=== PATIENT | female | born 2000 | race Caucasian/White ===

== ENCOUNTER 2022-08-13 08:07 | Emergency (ER) | payer BC, SELFPAY ==
[2022-08-13 08:16] VITALS: BP 155/88; PULSE 98; RESP 18; TEMP 36.3; O2SAT 98; BMI 45.8
--- NOTE | 2022-08-13 08:26 | ED_ITS ---
HPI - Headache General Chief Complaint: Headache/Migraine Stated Complaint: Headache, vomiting, diarrhea Time Seen by Provider: 08/13/22 08:13 History of Present Illness HPI Narrative: This 21-year-old female comes in reporting headache with vomiting and diarrhea. She states that she does get headaches on occasion and this 1 is worse in that it has lasted longer than usual. She does not have any neurologic deficits. She does not report any fevers. She does not have any cough or respiratory symptoms. There is no blood in the vomit or diarrhea. Related Data Home Medications Medication Instructions Recorded Confirmed bupropion HCl 150 mg 24 hr tablet, mg PO 08/13/22 extended release Previous Rx's Medication Instructions Recorded ketorolac 10 mg tablet 10 mg PO Q8H 5 days #15 tabs 08/13/22 ondansetron 4 mg disintegrating 4 mg PO Q6H #20 tabs 08/13/22 tablet Allergies Allergy/AdvReac Type Severity Reaction Status Date / Time erythromycin base Allergy Verified 08/13/22 08:19 Review of Systems Status of ROS: Reports: 10 or more systems reviewed and unremarkable except as noted in History and below Narrative: Constitutional: No fevers, no weight gain or loss. Eyes: No discharge. No vision changes. HENT: No congestion, no sore throat, no ear pain. Cardiovascular: No chest pain, no palpitations. Respiratory: No shortness of breath, no wheezes, no cough. Gastrointestinal: No abdominal pain. She has vomiting and diarrhea. Genitourinary: No dysuria, no hematuria. Musculoskeletal: Normal range of motion. Skin: No rashes, no pruritis. Neurological: No dizziness, weakness, sensory change, speech change. Endo/Heme/Allergies: No bruising or bleeding. No polydipsia. Pysch: no suicidality, no anxiety, no insomnia. All other systems reviewed and are negative. PFSH PFSH Social History Smoking Status: Unknown if ever smoked Do you use any of these nicotine containing products: None How often do you have a drink containing alcohol: monthly or less How often do you have six or more drinks on one occasion: Less than monthly AUDIT-C Alcohol total score: 2 Exam Narrative: Exam Narrative: Constitutional: Well-developed, well-nourished, no acute distress. HEENT: Normocephalic, atraumatic. Neck: Normal range of motion. Nontender. Supple. Heart: Regular. No murmurs. Normal rate. Intact distal pulses. Lungs: Clear to auscultation. No chest discomfort. No wheezes, rhonchi, or rales. Abdomen: Normal bowel sounds. Nontender. No rebound tenderness. Genitalia: Deferred. Back: No midline tenderness. Normal range of motion. Extremities: Normal range of motion. No injury. Skin: Intact. No rash. Warm. No erythema or pallor. Neurologic: No altered sensation. No weakness. Alert and oriented. Psychiatric: No suicidality. No anxiety or depression. No insomnia. Nursing notes and vitals signs are reviewed. Const: Vital Signs, click to edit/add: Vital Signs - 24 hr 08/13/22 08:16 Temperature 97.3 F L Pulse Rate [Right Pulse Oximeter] 98 Respiratory Rate 18 Blood Pressure [Ri ght Upper Arm] 155/88 H Pulse Oximetry 98 Oxygen Delivery Me thod Room Air Course Vital Signs Vital signs: Initial Vital Signs Temperature 97.3 F L 08/13/22 08:16 Temperature Source Temporal Artery Scan 08/13/22 08:16 Pulse Rate 98 08/13/22 08:16 Respiratory Rate 18 08/13/22 08:16 Blood Pressure 155/88 H 08/13/22 08:16 Blood Pressure Mean 110 08/13/22 08:16 Blood Pressure Position Sitting 08/13/22 08:16 Pulse Oximetry 98 08/13/22 08:16 Oxygen Delivery Method 08/13/22 08:16 Vital Signs Temperature 97.3 F L 08/13/22 08:16 Pulse Rate 98 08/13/22 08:16 Respiratory Rate 18 08/13/22 08:16 Blood Pressure 155/88 H 08/13/22 08:16 Pulse Oximetry 98 08/13/22 08:16 Oxygen Delivery Method 08/13/22 08:16 Temperature 97.3 F L 08/13/22 08:16 Pulse Rate 98 08/13/22 08:16 Respiratory Rate 18 08/13/22 08:16 Blood Pressure 155/88 H 08/13/22 08:16 Pulse Oximetry 98 08/13/22 08:16 Oxygen Delivery Method 08/13/22 08:16 MDM - Headache MDM Narrative Medical decision making narrative: This patient comes in with headache that is not atypical for her except that it has lasted longer than usual. Symptoms started about 3 days ago. She has had nausea, vomiting, and diarrhea. An IV was established where she received a L of normal saline along with Zofran 4 mg, Toradol 30 mg, and Benadryl 50 mg. This brought sufficient relief to her symptoms. She feels okay to return home. Testing for COVID and influenza is acquired and results are pending at the time of discharge. She received prescriptions for Toradol and Zofran. Discharge Plan Discharge Clinical Impression: Migraine Patient Disposition: Home, Self-Care Condition: Improved Additional Instructions: Take medication as needed and indicated. Follow up with MD or return if worsening. Prescriptions: New ketorolac 10 mg tablet 10 mg PO Q8H 5 Days Qty: 15 0RF ondansetron 4 mg tablet,disintegrating 4 mg PO Q6H Qty: 20 0RF No Action bupropion HCl 150 mg tablet extended release 24 hr PO Follow Up/Referrals: Verona Aviles MD [Primary Care Provider] - Stand Alone Forms: Drug Response Dx Info Instructions
--- OUTSIDE RECORDS SUMMARY | 2022-08-13 08:37 | XMS_ITS | Clinical Summary ---
:2000 Author Organization [facility] [place] [address] Care Team Providers Name Role Phone Verona Aviles MD Primary Care Provider [phone] Allergies Active Allergy Reactions Severity Noted Date Comments Erythromycin Other - Describe In Comment Field High 007 shock Medications Medication Sig Dispensed Refills Start Date End Date Status fluticasone (FLOVENT Inhale 2 Puffs by 10.6 g 2 10/15/2018 Active HFA) 44 mcg/Actuation mouth 2 times inhalerIndications: daily. Mild intermittent asthma without complication triamcinolone 0.1% Apply topically 1 Bottle 2 12/21/2020 Active TOPICAL (KENALOG) 0.1 % to affected lotionIndications: area(s) 3 times Contact dermatitis due daily. to chlorocompound group albuterol (PROVENTIL) Inhale 3 mL (2.5 75 mL 1 09/16/2021 Active 0.083 % neb mg) via a solutionIndications: nebulizer every 4 Mild intermittent hours if needed asthma without for Cough 1st complication choice, Shortness of Breath 1st choice or Wheezing 1st choice. norgestimate-ethinyl Take 1 Tablet by 84 Tablet 3 12/05/2021 Active estradioL (ORTHO mouth once daily. TRI-CYCLEN) 0.18/0.215/0.25 mg-35 mcg (28) tabletIndications: Encounter for contraceptive management, unspecified type albuterol HFA (PRO-AIR; INHALE 2 PUFFS BY 8.5 g 1 04/22/20 Active VENTOLIN; PROVENTIL) 90 MOUTH EVERY 4 mcg/actuation HOURS NEEDED inhalerIndications: FOR SHORTNESS OF Mild intermittent BREATH OR asthma without WHEEZING complication buPROPion (WELLBUTRIN Take 1 Tablet 90 Tablet 3 05/15/2022 Active XL) 150 mg (150 mg) by mouth Extended-Release every morning. tabletIndications: Anxiety Active Problems Problem Noted Date Pre-existing hypertension during in second t rimester 08/11/2021 Overview: Prior to bps elevated and thou ght possibly from anxiety. Were coming down with duloxetine per patient. Never on blood pressure medication. Stopped duloxetine and smoking when found out pregnan t. Started baby aspirin between 12-16wks of . Blood pressure at initial OB visit 125/77 but increased since. Will treat as chronic hypertension in . See office visit 08/08/21 04/22/2021 Overview: Formatting of this note is dif ferent from the original. 09/16/21 had COVID-19 infection. 33wk US EFW >97%. Repeat growth US in 4 weeks Estimated Date of Delivery: 11/01/21 Patient's last menstrual period was 12/25 (exact date). Last Tdap- 08/08/2021 Last Flu vaccine- 07/24/2021 Glucose (GTT) result- Component Latest Ref Rng & Units 07/24/2021 HEMOGLOBIN 12.0 - 16.0 g/dL 12.9 MCV 80 - 100 fL 89 GLUCOSE,GESTATIONAL 65 - 140 mg/dL 80 TREPONEMA PALLIDUM Negative Negative 20 week US: FINDINGS: Sonographic imaging demonstrates a singl e living intrauterine gestation. Fetus demonstrates a regular cardiac rate of 144 beats per minute. Fetus has a vertex position. The placenta lies anteriorly with out evidence of placenta previa. Amnioti c fluid volume appears normal. Single deepest vertical pocket: 5.8 cm. The composite ultrasound gestational age is calculated at 20 weeks 4 days with an estimated sonographic due date of 10/26/2021. Allergies Allergen Reactions ? ? Erythromycin Other - Describe In Comment Field shock OB History Para Term AB Living 1 0 0 0 0 0 SAB TAB Ectopic Multiple Live Births 0 0 0 0 0 # Outcome Date GA Lbr Yadiel/2nd Weight Sex Delivery Anes PTL Lv 1 Current Create lab flowsheet for OB labs- Component Latest Ref Rng & Units 03/01/2021 1 03/01/2021 2:02 PM 2:02 PM 2:02 PM ANTIBODY SCREEN Negative Negative SPECIMEN EXPIRATION DATE/TIME 03/04/21 23:59 HEMOGLOBIN 12.0 - 16.0 g/dL 14.7 MCV 80 - 100 fL 89 PLATELET COUNT 140 - 440 thou/cu mm 285 MPV 6.5 - 11.0 fL 10.8 RUBELLA IGG ANTIBODY Positive 6.72 CHLAMYDIA PROBE N GONORRHOEAE PROBE TREPONEMA PALLIDUM Negative Negative ABORH A Rh Positive HEPATITIS C ANTIBODY Non-Reactive Non-Reactive HIV-1/HIV-2 ANTIBODY Non-Reactive Non-Reactive HBSAG Nonreactive Nonreactive HCG BETA QUANT, mIU/mL 10,350 HEMOGLOBIN A1C SCREENING <=6.4 % 4.9 Component Latest Ref Rng & Units 04/18/2021 ANTIBODY SCREEN Negative SPECIMEN EXPIRATION DATE/TIME HEMOGLOBIN 12.0 - 16.0 g/dL MCV 80 - 100 fL PLATELET COUNT 140 - 440 thou/cu mm MPV 6.5 - 11.0 fL RUBELLA IGG ANTIBODY CHLAMYDIA PROBE Negative N GONORRHOEAE PROBE Negative TREPONEMA PALLIDUM Negative ABORH HEPATITIS C ANTIBODY Non-Reactive HIV-1/HIV-2 ANTIBODY Non-Reactive HBSAG Nonreactive HCG BETA QUANT, mIU/mL HEMOGLOBIN A1C SCREENING <=6.4 % Past Medical History: . Date ? ? Anxiety 12/25/2016 ? ? Dysfunction of eustachian tube 06/20/2008 ? ? 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 ? Obesity, unspecified 10/13/2008 ? ? Otitis media 06/20/2008 ? ? Unspecified otitis media recurrent Past Surgical History: . Laterality Date ? ? TONSIL AND ADENOIDECTOMY ? ? TYMPANOSTOMY x 4 sets No data on file. Problems (from 03/01/21 to pre sent) No problems associated with this episod robert Szymanski RN.....04/22/2021 8:30 AM Anxiety 12/25/2016 Mild intermittent asthma 06/16/2011 Oppositional defiant disorder of childhood or adolesce nce 01/17/2010 Obesity, unspecified 10/13/2008 Dysfunction of eustachian tube 06/20/2008 Otitis media 06/20/2008 Resolved Problems Problem Noted Date Resolved Date Unspecified asthma(493.90) 06/16/2011 Encounters Date Type Specialty Care Team Description 05/15/2022 Office Visit [facility]ell[facility] Pain (Side pain - bilateral - MD Jenni feels like a s kiera cramp especially when walking - LEFT side does radiate into back some x2-3 weeks /) 05/15/2022 Travel from Last 3 Months Immunizations Name Administration Dates Next Due COVID-19 vaccine (Moderna 01/23/2021, 11/21/2020 100mcg/0.5mL) PF, MDV DTaP 06/20/2004, 04/09/2000, 08/21/1999, 06/13/1999, 02/25/1999 HIB HbOC (HibTITER) 04/09/2000, 08/21/1999, 06/13/1999, 02/25/1999 HPV 9 (Gardasil 9) 07/04/2016 Hepatitis A (Peds) 01/13/2017, 07/04/2016 Hepatitis B (Peds) 04/13/2018, 11/19/2017, 10/12/2017, 08/21/1999, 06/13/1999, 02/25/1999 Human Papilloma Virus Vaccine 08/13/2011, 06/16/2011 Inactivated Polio Vaccine 06/20/2004, 12/30/1999, 06/13/1999 , 02/25/1999 Influenza A (H1N1), Inactivated 10/24/2009 Influenza, IIV3 (Age >=3 years) 09/10/2008, 12/11/2006 Influenza, IIV4 07/24/2021, 09/07/2020, 07/04/2016 MMR 06/20/2004, 12/30/1999 Meningococcal Vaccine (Menveo) 07/04/2016 Tdap 08/08/2021, 06/16/2011 Varicella Vaccine 06/16/2011, 12/30/1999 Family History Medical History Relation Name Comments Anesthesia Problem Father increased hea rt rate and blood pressure Diabetes Paternal Grandfather Asthma No Family History Blood Disease No Family History Heart Disease No Family History Hyperlipidemia No Family History Relation Name Status Comments Father Paternal Grandfather Social History Tobacco Use Types Packs/Day Years Used Date Never Smoker Smokeless Tobacco: Never Used Tobacco Cessation: Counseling Given: Yes Alcohol Use Standard Drinks/Week Comments No 0 (1 standard drink = 0.6 oz pure alcoho l) Sex Assigned at Date Recorded Not on file Obstetrics History Para Term AB IAB SAB Ectopic Multiple Living Live Births 1 1 1 0 0 0 0 0 0 1 1 Date Outcome GA Total Labor/2nd/3rd Weight Sex Delivery Anes PTL Giana A 1 A5 Name Clin Labor 10/26 Term 39w M CS-Classi Suzanne /2021 1d daniel ng Last Filed Vital Signs Vital Sign Reading Time Taken Comments Blood Pressure 133/94 05/15/2022 2:58 PM CDT Pulse 80 05/15/2022 2:55 PM CDT Temperature 36.7 ??C (98 ??F) 10/15/2018 11:15 AM MAP DRAFTER Respiratory Rate 16 10/15/2018 11:15 AM MAP DRAFTER Oxygen Saturation 99% 05/15/2022 2:55 PM CDT Inhaled Oxygen Concentration - - Weight 135.4 kg (298 lb 6.4 oz) 05/15/2022 2:55 PM CDT Height 167 cm (5' 5.75) 03/01/2021 1:25 PM CDT Body Mass Index 48.53 03/01/2021 1:25 PM CDT Plan of Treatment Health Maintenance Due Date Last Done Comments Pneumococcal series for age 19-64 2004 (1 - PCV) COVID-19 vaccine series (3 - 03/20/2021 01/23/2021, 021 Booster for Moderna series) BMI (ht and wt on same day) for 03/01/2022 03/01/2021, /06/2021, age 18+ 12/21/2020, Additional history exists Chlamydia for age 16-24 04/18/2022 04/18/2021, 09/07/2020, 06/01/2018, Additional history exists Influenza for age 9-49 06/26/2022 07/24/2021, 09/07/2020, 07/04/2016, Additional history exists Depression screening for age 12+ 12/05/2022 12/05/2021, , 11/01/2020, Additional history exists Pap test for age 21-65 09/07/2023 09/07/2020 Tetanus booster 08/08/2031 08/08/2021, 06/16/2011 HPV series for age 9-26 Completed 07/04/2016, 08/13/2011, 06/16/2011 Hepatitis C screening for age Completed 03/01/2021 18-79 Tdap Completed 08/08/2021, 06/16/2011 Procedures Procedure Name Priority Date/Time Associated Comments Diagnosis CBC WITH AUTO Routine 05/15/2022 4:09 PM anemia Res ults for this DIFFERENTIAL CDT procedure are i n the results section. FERRITIN Routine 05/15/2022 4:09 PM anemia Resu lts for this CDT procedure are i n the results section. CBC WITH AUTO Routine 05/15/2022 4:09 PM anemia Res ults for this DIFFERENTIAL CDT procedure are i n the results section. from Last 3 Months Results (ABNORMAL) CBC WITH AUTO DIFFERENTIAL (05/15/2022 4:09 PM CDT) [facility] Method Time Signature WHITE BLOOD 8.6 4.5 - 05/15/2022 [facility] COUNT 11.0 4:16 PM CDT [facility] mm RED BLOOD COUNT 5.27 (H) 4.00 - 05/15/2022 [facility] 5.20 4:16 PM CDT [facility] HEMOGLOBIN 13.2 12.0 - 05/15/2022 [facility] 16.0 g/dL 4:16 PM CDT [facility] HEMATOCRIT 40.6 33.0 - 05/15/2022 [facility] 51.0 % 4:16 PM CDT [facility] MCV 77 (L) 80 - 100 05/15/2022 [facility] fL 4:16 PM CDT [facility] MCH 25.0 (L) 26.0 - 05/15/2022 [facility] 34.0 pg 4:16 PM CDT [facility] MCHC 32.5 32.0 - 05/15/2022 [facility] 36.0 g/dL 4:16 PM CDT [facility] RDW 15.5 11.5 - 05/15/2022 [facility] 15.5 % 4:16 PM CDT [facility] PLATELET COUNT 380 140 - 440 05/15/2022 [facility] thou/cu 4:16 PM CDT [facility] MPV 10.4 6.5 - 05/15/2022 [facility] 11.0 fL 4:16 PM CDT [facility] % NEUT 59.7 % 05/15/2022 [facility] 4:16 PM CDT [facility] % LYMPH 29.1 % 05/15/2022 [facility] 4:16 PM CDT [facility] % MONO 9.9 % 05/15/2022 [facility] 4:16 PM CDT [facility] % EOS 0.7 % 05/15/2022 [facility] 4:16 PM CDT [facility] % BASO 0.6 % 05/15/2022 [facility] 4:16 PM CDT [facility] ABSOLUTE 5.1 1.7 - 7.0 05/15/2022 [facility] NEUTROPHILS thou/cu 4:16 PM CDT [facility] ABSOLUTE 2.5 0.9 - 2.9 05/15/2022 [facility] LYMPHOCYTES thou/cu 4:16 PM CDT [facility] ABSOLUTE 0.9 (H) <0.9 05/15/2022 [facility] [employer] MONOCYTES thou/cu 4:16 PM CDT [facility] ABSOLUTE 0.1 <0.5 05/15/2022 [facility] EOSINOPHILS thou/cu 4:16 PM CDT [facility] ABSOLUTE 0.1 <0.3 05/15/2022 [facility] BASOPHILS thou/cu 4:16 PM CDT [facility] Specimen Anatomical Collection Method / Collection Time Recei adam Time (Source) Location / Volume Laterality Blood BLOOD SPECIMEN / Venipuncture / 05/15/2022 4:09 2021 4:10 Unknown Unknown PM CDT PM CDT Verona Avilse MD HEMATOLOGY Performing Organization Address City/State/ZIP Code Phon e Number [facility] [address] [place] [address] (ABNORMAL) FERRITIN (05/15/2022 4:09 PM CDT) athologist Signature FERRITIN 10.1 (L) 15.0 - 05/16/2022 [facility] 205.0 ng/mL 6:01 AM CDT [facility] Specimen Anatomical Collection Method / Collection Time Recei adam Time (Source) Location / Volume Laterality Blood BLOOD SPECIMEN / Venipuncture / 05/15/2022 4:09 2021 4:10 Unknown Unknown PM CDT PM CDT Verona Aviles MD CHEMISTRY Performing Organization Address City/State/ZIP Code Phon e Number [place] [address] [place] [address] [facility] [address] LABORATORY from Last 3 Months Insurance Payer Benefit Plan / Subscriber ID Effective Dates Phone Addre ss Type Group [employer] [id number] 2019-Present [address] [place] [address] Care Teams Timber Spotter Relationship Specialty Start Date End Date Verona Aviles MD PCP - General Family Practice 02/20/21 [address] [place] [address]
[2022-08-13] MEDS: ONDANSETRON 2 MG/ML inj 4 MG IVP (08:48)
[2022-08-13] MEDS: diphenhydrAMINE 50 MG/ML inj IVP (08:59)
[2022-08-13] MEDS: KETOROLAC 30 MG/ML inj IVP (09:01)
[2022-08-13] MEDS: 0.9 % SODIUM CHLORIDE 1000 ml 1,000 ML IV (09:02)
[2022-08-13 09:30] VITALS: BP 119/74; PULSE 68; RESP 18; O2SAT 100
[2022-08-13 10:00] VITALS: BP 122/74; PULSE 66; RESP 18; O2SAT 97
[2022-08-13 10:11] LABS: PCR FLU A Negative PCR FLU A (Negative); PCR FLU B Negative PCR FLU B (Negative)
[2022-08-13 10:18] LABS: SARS PCR* Negative SARS-CoV-2 (Negative)
== END 2022-08-13 10:36 | disposition home or self-care (01) ==
PROVIDERS: Emergency Provider Emergency Medicine Emergency Medical Services; PCP Family Medicine
DX: G43.909 Migraine, unspecified, not intractable, without status migrainosus (principal)
CPT/HCPCS: 87631; 96374; 96375; 99284; J1200; J1885; J2405; J7030

== ENCOUNTER 2023-08-25 08:47 | Outpatient (CLI) | payer BC, SELFPAY ==
--- NOTE | 2023-08-25 09:15 | CRLHL7_ITS ---
For Patients: As a result of the Century Cures Act, medical imaging exams and procedure reports are released immediately into your electronic medical record. You may view this report before your referring provider. If you have questions, please contact your health care provider. ULTRASOUND-GUIDED RIGHT PREAURICULAR MASS BIOPSY. CLINICAL HISTORY: Palpable hypoechoic mass right preauricular soft tissues. TECHNIQUE: Real-time ultrasound with image documentation was used for targeting the subcutaneous lesion. Core biopsy specimens were obtained using an 18 gauge Temno biopsy needle. CONSENT and TIME OUT: The procedure, risks, and alternatives were explained to the patient and a consent was signed. [place] Protocol was followed including pre-procedure verification that relevant information/documentation was available, reviewed and properly matched to the patient; consent accurate and complete; and equipment and supplies available. Time Out was conducted just prior to starting procedure to verify the four required elements: patient identity, correct side/site marked (if applicable), procedure, relevant images/results properly labeled and displayed (if applicable). PROCEDURE: The patient was positioned supine on the ultrasound table. The right preauricular skin was prepped with ChloraPrep. 4 cc of 1 percent lidocaine used for local anesthesia. Core samples were obtained. The specimens were placed in 10% formalin and sent to the pathology department. Pressure was held on the biopsy site until all bleeding subsided. The skin incision was closed with Steri-Strips. An ice pack was positioned over the biopsy site. Post-biopsy instructions were reviewed with the patient, and a written copy was given to her. LATERALITY: Right pre-auricular soft tissues. LESION: Circumscribed heterogeneously hypoechoic solid mass measuring 2.9 x 1.5 x 1.9 cm. NUMBER OF SAMPLES: 5 IMPRESSION: Ultrasound-guided right pre-auricular solid mass biopsy. Dictated by Neftaly Hinojosa MD @ 08/25/2023 11:18:37 AM (Electronically Signed)
== END 2023-08-25 08:48 | disposition home or self-care (01) ==
PROVIDERS: PCP Family Medicine; Visit Provider Physician Assistant
DX: H93.8X1 Other specified disorders of right ear (principal)
CPT/HCPCS: 20206; 76942; 88304; A4649

== ENCOUNTER 2024-05-01 14:41 | Emergency (ER) | payer BC, SELFPAY ==
[2024-05-01 14:50] VITALS: BP 139/101; PULSE 118; RESP 14; TEMP 37.2; O2SAT 97; BMI 47.3
--- NOTE | 2024-05-01 15:01 | ED_ITS ---
HPI - Fever General Time Seen by Provider: 15:01 Date Seen: 05/01/24 Chief Complaint: Fever Stated Complaint: Covid symptoms Time Seen by Provider: 05/01/24 14:42 Source: patient and RN notes reviewed Mode of arrival: ambulatory Limitations: no limitations History of Present Illness HPI Narrative: This 23-year-old female is coming into the ER with recurrent fevers, swollen lymph nodes in her neck with known COVID. Patient started with sore throat, lymphadenopathy and muscle aches, fevers with the onset of COVID. She tested positive on April 22. She did take Paxlovid and finished this on Thursday. Thursday she started with fevers again, sore throat was not as bad but the lymph nodes in her neck were hurting again. She did have some nausea. She has had s ome clear rhinorrhea through this, feels more congested now. She has had no cough through this. She has body aches again. She actually outside of this sore throat which is better, feels worse than when she was initially diagnosed with COVID. She had low-grade fevers initially, starting on Thursday she has been running temperatures toe 102-103. Has been using [id number] medicines for symptom control. She is not aware of any new ill contacts. MD elicited complaint: fever Related Data Home Medications ?Medication ?Instructions ?Recorded ?Confirmed metoprolol succinate 25 mg 12.5 - 25 mg PO DAILY 05/01/24 05/01/24 tablet,extended release 24 hr phentermine 37.5 mg tablet 37.5 mg PO DAILY 05/01/24 05/01/24 sumatriptan succinate 25 mg tablet PO 05/01/24 Allergies Allergy/AdvReac Type Severity Reaction Status Date / Time erythromycin base Allergy Verified 08/13/22 08:19 Review of Systems Narrative As per HPI. PFSH PFS Social History Smoking Status: Unknown if ever smoked Do you use any of these nicotine containing products: None How often do you have a drink containing alcohol: monthly or less How often do you have six or more drinks on one occasion: Less than monthly AUDIT-C Alcohol total score: 2 Exam Const Vital Signs, click to edit/add: Vital Signs - 24 hr 05/01/24 14:50 05/01/24 15:28 Temperature 98.9 F 98.9 F Pulse Rate [Pulse Oximeter] 118 H Respiratory Rate 14 16 Blood Pressure [Right Forearm] 139/101 H Pulse Oximetry 97 95 Oxygen Delivery Method Room Air Room Air This very pleasant 23-year-old female is alert, interactive, no apparent distress, is obese. It will speak in complete sentences, voice is normal. Pupils equal round reactive, sclera clear. TMs are normal. Anterior nares with some clear rhinorrhea. Oropharynx with scarring from prior tonsillectomy, oral mucosa is well hydrated, no exudates or erythema. I do note some anterior small bilateral mobile but slightly tender cervical adenopathy. There is no thyromegaly masses or nodules. Lungs are clear, good air entry, no wheezing or crackles, no tachypnea. CV regular rate and rhythm, no murmur, normal S1-S2, no S3-S4. Documenting provider has reviewed patient's vital signs: yes Course Course ED Course: Patient may have rebound COVID after use of Paxlovid. Will check a SARs antigen, CBC and mono spot. If her white blood count is elevated, she is likely manifesting early secondary bacterial infection and would treat with antibiotics. She has no respiratory symptoms through this illness, do not think chest x-ray would be beneficial or is indicated at this time. She understands if the antigen is still positive, she is still infectious for COVID. Reevaluation(s) Time of Reevaluation #1: 16:06 Reevaluation #1: Reviewed negative COVID antigen, negative Monospot, white blood count is upper limits of normal with increased absolute neutrophil count. Her strep is still pending. Have discussed treatment, we will cover her with antibiotics. She has taken amoxicillin before and there may have been a reaction. Thus, we will do a Z-Adolfo. Vital Signs Vital signs: Initial Vital Signs Temperature 98.9 F 05/01/24 14:50 Temperature Source Temporal Artery Scan 05/01/24 14:50 Pulse Rate 118 H 05/01/24 14:50 Pulse Rhythm Regular 05/01/24 14:50 Respiratory Rate 14 05/01/24 14:50 Blood Pressure 139/101 H 05/01/24 14:50 Blood Pressure Mean 113 H 05/01/24 14:50 Blood Pressure Position Sitting 05/01/24 14:50 Pulse Oximetry 97 05/01/24 14:50 Oxygen Delivery Method Room Air 05/01/24 14:50 Vital Signs Temperature 98.9 F 05/01/24 14:50 Pulse Rate 118 H 05/01/24 14:50 Respiratory Rate 14 05/01/24 14:50 Blood Pressure 139/101 H 05/01/24 14:50 Pulse Oximetry 97 05/01/24 14:50 Oxygen Delivery Method Room Air 05/01/24 14:50 Temperature 98.9 F 05/01/24 15:28 Pulse Rate 118 H 05/01/24 14:50 Respiratory Rate 16 05/01/24 15:28 Blood Pressure 139/101 H 05/01/24 14:50 Pulse Oximetry 95 05/01/24 15:28 Oxygen Delivery Method Room Air 05/01/24 15:28 MDM - Fever Lab Data Attestation: I reviewed the patient's lab results. Labs: Lab Results 05/01/24 05/01/24 05/01/24 Range/Units 15:00 15:36 15:40 WBC 9.97 (4.50-11.00) K/uL RBC 5.07 (4.00-5.20) m/uL Hgb 14.2 (12.0-16.0) gm/dL Hct 42.4 (33.0-51.0) % MCV 84 (80-100) fL MCH 28 (26-34) pg MCHC 34 (32-36) gm/dL RDW Coeff of Vidhi 12.8 (11.5-15.5) % Plt Count 274 (140-440) K/uL Neut % (Auto) 85.9 H (42.0-72.0) % Lymph % (Auto) 7.5 L (20-44) % Island % (Auto) 5.7 (0.0-11.0) % Eos % (Auto) 0.1 (0.0-7.0) % Baso % (Auto) 0.6 (0.0-3.0) % Neut # (Auto) 8.60 H (1.7-7.0) K/uL Lymph # (Auto) 0.70 L (0.90-2.90) K/uL Island # (Auto) 0.60 (0.00-0.90) K/UL Eos # (Auto) 0.01 (0.00-0.50) K/uL Baso # (Auto) 0.06 (0.00-0.30) K/uL Abs Immat Gran (auto) 0.02 (0.00-0.30) K/uL Imm/Tot Granulo (auto) 0.2 % Monoscreen Negative (Negative) SARS-CoV-2 Ag (Rapid) Negative (Negative) Group A Strep DNA DETECTED A (Not Detectd) Discharge Plan Discharge Clinical Impression: Fever Patient Disposition: Home, Self-Care Condition: Stable Instructions: Fever in Adults (ED) Additional Instructions: Start the Z-Adolfo and take as prescribed. You could have a secondary bacterial infections such as sinusitis. The Z-Adolfo will cover for strep as well, this test is pending but you should be adequately treated taking this antibiotic. Recommend ongoing alternation of Tylenol and ibuprofen every 3-4 hours as needed for fever and symptom control. If you are not improving in the next couple of d ays, feel you are worsening at any point or have further concerns, please seek re-evaluation. Activity Level: Activity as Tolerated Discharge Diet: Regular Prescriptions: No Action sumatriptan succinate 25 mg tablet PO phentermine 37.5 mg tablet 37.5 mg PO DAILY metoprolol succinate 25 mg tablet extended release 24 hr 12.5 - 25 mg PO DAILY Follow Up/Referrals: Verona Aviles MD [Primary Care Provider] - Stand Alone Forms: Scholrly Info Instructions
--- OUTSIDE RECORDS SUMMARY | 2024-05-01 15:24 | XMS_ITS | Clinical Summary ---
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 1 Bottle 2 1 Active albuterol (PROVENTIL) 0.083 % neb solutionIndications :Mild intermittent asthma without complication Inhale 3 mL (2.5 mg) via a nebulizer every 4 hours if needed for Cough 1st choice, Shortness of Breath 1st choice or Wheezing 1st choice. 75 mL 1 1 Active metoprolol succinate (Toprol XL) 25 mg Sustained-Release tabletIndications:M igraine with aura and with status migrainosus, not intractable Take 1/2 to 1 tablet daily 90 Tablet 3 3 Active SUMAtriptan (IMITREX) 25 mg tabletIndications:M igraine with aura and with status migrainosus, not intractable Take 1 Tablet (25 mg) by mouth every 2 hours if needed for Migraine. Give at minimum 2hrs apart. Max Dose: 200mg per 24hrs. 10 Tablet 3 3 Active albuterol HFA (PRO-AIR; VENTOLIN; PROVENTIL) 90 mcg/actuation inhalerIndications: Mild intermittent asthma without complication Inhale 1-2 Puffs by mouth every 6 hours if needed for Shortness Of Breath or Wheezing. 8.5 g 3 3 Active phentermine (ADIPEX-P) 37.5 mg tabletIndications:C lass 3 severe obesity with body mass index (BMI) of 45.0 to 49.9 in adult, unspecified obesity type, unspecified whether serious comorbidity present (HC) Take 1 Tablet (37.5 mg) by mouth once daily before a meal. 30 Tablet 4 Active phentermine (ADIPEX-P) 37.5 mg tabletIndications:C lass 3 severe obesity with body mass index (BMI) of 45.0 to 49.9 in adult, unspecified obesity type, unspecified whether serious comorbidity present (HC) Take 0.5 Tablets (18.75 mg) by mouth once daily before a meal. Phentermine will need to be discontinued 10 days prior to a surgical procedure. 15 Tablet 4 04/12/20 24 Discontinued cholecalciferol (VITAMIN D3) 50,000 unit capsuleIndications: Vitamin D deficiency Take 1 Capsule (50,000 units) by mouth once weekly for 8 doses. 8 Capsule 4 04/30/20 24 nirmatrelvir-ritona vir 300-100mg (PAXLOVID, EUA,) tabletIndications:C OVID-19 virus infection Take 2 nirmatrelvir 150 mg pink-oval tablets and 1 ritonavir 100 mg white-oval tablet together twice daily for 5 days. Date of Symptom Onset: 04/20/2024; 03/10/2024: CREATININE 0.70 mg/dL 30 Tablet 4 04/27/20 24 Active Problems Problem Noted Date Diagnosed Date #2 08/06/2023 Overview: Estimated Date of Delivery: 03/22/24 Patient's last menstrual period was 06/16/2023 (exact date). GBS- No results found for: OBVAGRECGBS Glucose (GTT) result- NEEDS REFRESH GLUCOSE,GESTATIONAL Date Value Ref Range Status 07/24/2021 80 65 - 140 mg/dL Final Last Tdap- 2020 Last Flu vaccine- 2021 OB Labs: NEEDS REFRESH ABORH Date Value Ref Range Status 03/01/2021 A Rh Positive Final ANTIBODY SCREEN Date Value Ref Range Status 03/01/2021 Negative Negative Final HEMOGLOBIN Date Value Ref Range Status 05/15/2022 13.2 12.0 - 16.0 g/dL Final PLATELET COUNT Date Value Ref Range Status 05/15/2022 380 140 - 440 thou/cu mm Final TREPONEMA PALLIDUM Date Value Ref Range Status 07/24/2021 Negative Negative Final RUBELLA IGG ANTIBODY Date Value Ref Range Status 03/01/2021 6.72 >=1.00 Index Final INTERPRETATION Date Value Ref Range Status 03/01/2021 Positive Final Comment: Presence of detectable IgG antibodies. A positive result generally indicates exposure to the virus or previous vaccination, but is not an indication of active infection or stage of disease. HBSAG Date Value Ref Range Status 03/01/2021 Nonreactive Nonreactive Final HEPATITIS C ANTIBODY Date Value Ref Range Status 03/01/2021 Non-Reactive Non-Reactive Final Comment: Antibodies to HCV not detected; does not exclude the possibility of exposure to HCV. CHLAMYDIA PROBE Date Value Ref Range Status 04/18/2021 Negative Final N GONORRHOEAE PROBE Date Value Ref Range Status 04/18/2021 Negative Final Allergies Allergen Reactions Erythromycin Other - Describe In Comment Field shock Effexor [Venlafaxine] *Unknown Cognitive changes OB History Para Term AB Living 2 1 1 0 0 1 SAB IAB Ectopic Multiple Live Births 0 0 0 0 1 # Outcome Date GA Lbr Yadiel/2nd Weight Sex Delivery Anes PTL Lv 2 Current 1 Term 10/26/21 39w1d M CORBIN Past Medical History: . 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 Laterality Date SECTION 10/26/2021 arrest of dilitation. complicated by 1800ml blood loss TONSIL AND ADENOIDECTOMY 2001 TYMPANOSTOMY x 4 sets Problems (from 08/06/23 to present) No problems associated with this episode. Keisha Kimble RN ....08/06/2023 2:22 PM Pre-existing hypertension du ring in second trimester 08/11/2021 Overview: Prior to bps elevated and thought possibly from anxiety. Were coming down with duloxetine per patient. Never on blood pressure medication. Stopped duloxetine and smoking when found out . Started baby aspirin between 12-16wks of . Blood pressure at initial OB visit 125/77 but increased since. Will treat as chronic hypertension in . See office visit 08/08/21 Anxiety 12/25/2016 Mild intermittent asthma 06/16/2011 Oppositional defiant disorder of childhood or ad olescence 01/17/2010 Obesity, unspecified 10/13/2008 Dysfunction of eustachian tube 06/20/2008 Otitis media 06/20/2008 Resolved Problems Problem Noted Date Diagnosed Date Resolved Date 04/22/2021 08/06/2023 Overview: 09/16/21 had COVID-19 infection. 33wk US EFW >97%. Repeat growth US in 4 weeks Estimated Date of Delivery: 11/01/21 Patient's last menstrual period was 01/16/2021 (exact date). Last Tdap- 08/08/2021 Last Flu vaccine- 07/24/2021 Glucose (GTT) result- Component Latest Ref Rng & Units 07/24/2021 HEMOGLOBIN 12.0 - 16.0 g/dL 12.9 MCV 80 - 100 fL 89 GLUCOSE,GESTATIONAL 65 - 140 mg/dL 80 TREPONEMA PALLIDUM Negative Negative 20 week US: FINDINGS: Sonographic imaging demonstrates a single living intrauterine gestation. Fetus demonstrates a regular cardiac rate of 144 beats per minute. Fetus has a vertex position. The placenta lies anteriorly without evidence of placenta previa. Amniotic fluid volume appears normal. Single deepest vertical [...] Component Latest Ref Rng & Units 03/01/2021 03/01/2021 03/01/2021 2:02 PM 2:02 PM 2:02 PM [...] data on file. Problems (from 03/01/21 to present) No problems associated with this episode. Kati Szymanski RN.....04/22/2021 8:30 AM Unspecified asthma(493.90) 0 06/16/2011 Encounters Date Type Department Care Team Description 04/22/2024 2:20 PM CDT E-Visit [facility] [address] [place] [address] Verona Aviles MD eVisit for Sinus 04/13/2024 11:00 AM CDT Telemedicine [facility] [address] [place] [address] Medical Nutrition Therapy ([facility] initial visit) 04/13/2024 Travel 04/10/2024 [place] [facility] [address] [facility] [place] [address] Dulce Eastman PA Refill Request (Phentermine) 03/31/2024 1:00 PM CDT [place]icine [facility] [address] [facility] [place] [address] Dulce Eastman PA Telehealth (No vitals taken); Weight (2nd visit, f/u phentermine) 03/31/2024 Travel 03/10/2024 9:00 AM CDT Office Visit [facility] [address] [place] [address] Mignon Hagan PA Post-op (Right ear cyst excision 02-18-24) 03/10/2024 Travel 03/01/2024 2:00 PM CDT Telemedicine [facility] [address] [facility] [place] [address] Dulce Eastman PA Consult (Initial); Telehealth (No vitals taken) 03/01/2024 Travel 02/18/2024 6:48 AM CDT - 02/18/2024 11:59 PM CDT Hospital Encounter Brenden Prater MD 02/18/2024 Orders Only [facility] Scanner 1 scan: (1-Ord) [facility], RIGHT PRE AURICULAR CYST, 02/18/2024 02/18/2024 Lab Requisition [facility] [phone] Brenden Prater MD 02/18/2024 Orders Only [facility] [address] [phone] Brenden Prater MD <No scans attached> 02/18/2024 Surgery [facility] [address] [place] [address] Brenden Prater MD Right ear cyst excision from Last 3 Months Immunizations Name Administration Dates Next Due COVID-19 vaccine (Moderna 100mcg/0.5mL) PF, MDV 01/23/2021,11/21/2020 DTaP 06/20/2004, 0,08/21/1999,06/13,02/25/1999 HIB HbOC (HibTITER) 04/09/2000,199 9,06/13/1999,02/25 HPV 9 (Gardasil 9) 07/04/2016 Hepatitis A (Peds) 01/13/2017,07/04/2016 Hepatitis B (Peds) 04/13/2018, 8,10/12/2017,08/21,06/13/1999,02/25/1999 Human Papilloma Virus Vaccine 08/13/2011, 011 Inactivated Polio Vaccine 06/20/2004,03/2000,06/13/1999,02/25 Influenza A (H1N1), Inactivated 10/24/2009 Influenza, IIV3 (Age >=3 years) 09/10/2008,12/11 Influenza, IIV4 09/05/2022,,09/07/2020,07/04 MMR 06/20/2004,12/30/1999 Meningococcal Vaccine (Menveo) 07/04/2016 Tdap 08/08/2021,06/16/2011 Varicella Vaccine 06/16/2011,12/30/1999 Family History Medical History Relation Name Comments Diabetes Brother Type 1 Hypertension Brother Anesthesia Problem Father increased heart rate and blood pressure Hypertension Father Cancer Maternal Grandfather prostat e?? COPD Maternal Grandmother Diabetes Maternal Uncle 1 Type 1 Drug Abuse Maternal Uncle 2 Heart defect Maternal Uncle 2 unknown wha t it was No Known Problems Mother Diabetes Paternal Grandfather Type 2 No Known Problems Paternal Grandmother Asthma Sister 1 Asthma Sister 2 No Known Problems Son Blood Disease No Family History Heart Disease No Family History Hyperlipidemia No Family History Relation Name Status Comments Brother Alive Father Alive Maternal Grandfather Maternal Grandmother Alive Maternal Uncle 1 Alive Maternal Uncle 2 Mother Alive Paternal Grandfather Paternal Grandmother Alive Sister 1 Alive Sister 2 Alive Sister 3 Alive Son Alive Social History Tobacco Use Types Packs/Day Years Used Date Smoking Tobacco: Never Smokeless Tobacco: Never Tobacco Cessation:Counseling Given: Yes Alcohol Use Standard Drinks/Week Comments Not Currently 0 (1 standard drink = 0.6 oz pur e alcohol) PHQ-2 Answer Date Recorded PHQ-2 TOTAL SCORE 0 06/11/2023 Social Connections Answer Date Recorded Frequency of Communication with Friends and Fami ly 0 06/11/2023 Financial Resource Strain Answer Date R ecorded Difficulty of Paying Living Expenses 3 06/11/2023 Difficulty of Paying Living Expenses Not on file 06/11/2023 Food Insecurity Answer Date Recorded Worried About Running Out of Food in the Last Ye ar 1 06/11/2023 Transportation Needs Answer Date Record ed Lack of Transportation (Medical) 1 06/11/2023 Housing Stability Answer Date Recorded Unable to Pay for Housing in the Last Year 1 06/11/2023 Sex and Gender Information Value Date Recorded Sex Assigned at Not on file Gender Identity Not on file Sexual Orientation Not on file Obstetrics History Para Term AB IAB SAB Ectopic Multiple Livin g Live Births 2 1 1 0 1 0 1 0 0 1 1 Date Outcome GA Total Labor Labor/2nd/3rd Weight Sex Type Anes PTL Corbin A1 A5 Name Clin SAB SPONTAN EOUS Demise 10/26 Term 39w 1d M C-Secti on Living Summary Episode Dates Number of Fetuses Estimated Date of Delivery 08/06/2023 - Present (05/01/2024) 03/22/2024 (set by Keisha Kimble, RN on 08/06/2023 based on Alternate DOTTIE Entry) Dating Summary Based On DOTTIE GA Diff Last Menstrual Period on 06/16/2023 (Exact Date) 03/22/2024 Same Alternate DOTTIE Entry 03/22/2024 Working Vitals Date GA Fund Present FHR Mvmt BP Weight Edema Alb Glu Ket Dil/ Eff/Sta 4 35w2d Inpatient data not displayed here. See encounter summary. Notes Progress Notes - Phone OB En counter - 08/06/2023 - GA:7w2d 08/06/2023 - 7w2d - Keisha Kimble RN Virtual Visit: As the provider for this telephone service, I attest that I introduced myself to the patient, provided my credentials, disclosed my location, and determined that, based on a review of the patient's chart and/or a discussion with members of the patient's treatment team, a telephone visit is an appropriate and effective means of providing this service. The patient and I mutually agree that this visit is appropriate for telephone as well. Patient location (originating site [facility] [place], [place] Provider location (distant site city/state): [place], [place] Video/Phone start time (include am/pm designation): 1:00 PM Video/Phone end time (include am/pm designation): 1400 SUBJECTIVE: Deepa Brown is a 22 y.o. female, , who presents for OB education and intake Had positive test at home. This was Unplanned, Desired. Patient was not on contraception. Date Reliability: definite DOTTIE based on LMP: Estimated Date of Delivery: 03/22/24 Current symptoms include: Nausea:Yes - mild Vomiting:No Breast tenderness:Yes Vaginal bleeding:No Vaginal discharge:No Pelvic cramping:No Fatigue:Yes Previous Delivery Type: Occupation of patient: alcohol and drug counselor Name of Partner or Father of baby: Jainism. MENSTRUAL HISTORY: Patient's last menstrual period was 06/16/2023 (exact date).: Cycle Regularity: regular, every 30 days Past Medical History: . 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 No Do any of your friends (peers) have problems with drug or alcohol use? No Does your partner have a problem with drug or alcohol use? No Before you knew you were , how often did you drink beer, wine, wine coolers or liquor or use any kind of drug? Rarely - alcohol In the past month, how often did you drink beer, wine, wine coolers or liquor or use any kind of drug? Not at all How much did you smoke, vape or use tobacco or nicotine in any form before you knew you were ? Don't Smoke, Vape or use Tobacco Genetic Screening Genetic Screening/Teratology Counseling- Includes patient, baby's father, or anyone in either family with: Patient's age 35 years or older as of estimated date of delivery: No Thalassemia (Lao, Greenlandic, Mediterranean, or background): MCV less than 80: No Neural tube defect (Meningomyelocele, Spina bifida, or Anencephaly): No Congenital heart defect: Yes (Comment: maternal uncle) Down syndrome: No Dimitris-Sachs (Ashkenazi Cheondoism, Cajun, Costa Rican Coosa): No Glenn disease (Ashkenazi Cheondoism): No Familial dysautonomia (Ashkenazi Cheondoism): No Sickle cell disease or trait (): No Hemophilia or other blood disorders: No Muscular dystrophy: No Cystic fibrosis: No Madison's chorea: No Intellectual disability and/or autism: Yes (Comment: baby's father - autism) If yes, was the person tested for Fragile X?: No Other inherited genetic or chromosomal disorder: No Maternal metabolic disorder (eg. Type 1 diabetes, PKU): Yes Patient or baby's father had child with defects not listed above: No Recurrent loss, or a stillbirth: No Medications (including supplements, vitamins, herbs, or OTC drugs)/illicit/recreational drugs/alcohol since last menstrual period: No CURRENT MEDICATIONS: Current Outpatient Medications Medication Sig albuterol (PROVENTIL) 0.083 % neb solution Inhale 3 mL (2.5 mg) via a nebulizer every 4 hours if needed for Cough 1st choice, Shortness of Breath 1st choice or Wheezing 1st choice. albuterol HFA (PRO-AIR; VENTOLIN; PROVENTIL) 90 mcg/actuation inhaler Inhale 1-2 Puffs by mouth every 6 hours if needed for Shortness Of Breath or Wheezing. buPROPion (WELLBUTRIN XL) 150 mg Extended-Release tablet Take 1 Tablet (150 mg) by mouth every morning. methylphenidate HCl (RITALIN ER) 10 mg Extended-Release tablet Take 10 mg by mouth once daily. metoprolol succinate (Toprol XL) 25 mg Sustained-Release tablet Take 1/2 to 1 tablet daily [id number]/FA/om3/dha/epa ( GUMMY ORAL) Take by mouth. SUMAtriptan (IMITREX) 25 mg tablet Take 1 Tablet (25 mg) by mouth every 2 hours if needed for Migraine. Give at minimum 2hrs apart. Max Dose: 200mg per 24hrs. triamcinolone 0.1% TOPICAL (KENALOG) 0.1 % lotion Apply topically to affected area(s) 3 times daily. No current facility-administered medications for this visit. Medications have been reviewed by me and are current to the best of my knowledge and ability. ALLERGIES: Erythromycin and Effexor [venlafaxine] OBJECTIVE: LMP 06/16/2023 (Exact Date) ,URINE (no units) Date Value 02/21/2021 Positive (Positive) ASSESSMENT/PLAN: No diagnosis found. EDUCATION/PATIENT INSTRUCTIONS - Advised patient to start/continue vitamin. - Discussed risk of using alcohol, tobacco, other drugs in . - Discussed healthy lifestyle in . - Provided online resources such as [employer] and [employer] Elana. Discussed [id number]-[id number] medications, and follow up. - Encouraged patient to call clinic at [phone] with any vaginal bleeding, fluid leaking from vagina, severe abdominal pain, nausea with severe vomiting, fever higher than 100.4F, painful urination, headache not relieved by Tylenol, or other concerns - labs - Patient informed to schedule 1st trimester dating ultrasound between 7-10 weeks. - Initial OB appointment with FP/OB scheduled. PHQ-9, and COVID-19 vaccine discussion to be completed at this visit. Future Appointments Date Time Provider Department Center 08/10/2023 1:45 PM [facility] ULTRASOUND [facility] 09/07/2023 8:20 AM Katerine Watson, NFLDFP NFLD Keisha Kimble RN .................... 08/06/2023 1:34 PM Last Filed Vital Signs Vital Sign Reading Time Taken Comments Blood Pressure 128/80 03/23/2024 10:01 AM CDT patient reported Pulse 69 03/31/2024 12:45 PM CDT Temperature 36.7 ??C (98.1 ??F) 12/24/2023 9 :04 AM CUFF TURNER Respiratory Rate 16 10/15/2018 11:1 5 AM CUFF TURNER Oxygen Saturation 98% 01/29/2024 8:3 8 AM CDT Inhaled Oxygen Concentration - - Weight 131.1 kg (289 lb) 04/13/2024 11: 00 AM CDT Height 165.1 cm (5' 5) 04/13/2024 11:0 0 AM CDT Body Mass Index 48.09 04/13/2024 11:00 AM CDT Plan of Treatment Upcoming Encounters Date Type Department Care Team (Late st Contact Info) Description 05/02/2024 1:00 PM CDT [place]medicine [facility] [address] [place], [place] [phone] Dulce Eastman PA [address] [place], [place] [address] 06/15/2024 3:00 PM CDT Telemedicine [facility] [address] [place] [phone] [place] [address] [phone] Health Maintenance Due Date Last Done Comments COVID-19 vaccine series ( season) 2023 01/23/2021, 11/21/2020 Pap test for age 21-65 09/07/2023 09/07/2020 Depression screening for age 12+ 06/11/2024 06/11/2023, 12/05/2021, 10/22/2021, Additional history exists Influenza for age 9-49 06/26/2024 , 07/24/2021, 09/07/2020, Additional history exists BMI (ht and wt on same day) for age 18+ 04/13/2025 04/13/2024, 03/31/2024, 03/01/2024, Additional history exists Tetanus booster 08/08/2031 08/08/2021, 06/16/2011 HPV series for age 9-26 Completed 07/04/20 16, 08/13/2011, 06/16/2011 Tdap Completed 08/08/2021, 06/16/2011 HIV for age 15-65 Completed 08/10/2023, 03/01/2021 Hepatitis C screening for age 18-79 Completed 08/10/2023, 03/01/2021 Pneumococcal series for age 6-64 Aged Out No longer eligible based on patient's age to complete this topic Procedures Procedure Name Priority Date/Time Associated Diagnosis Comments VITAMIN D 25 (DEFICIENCY) Routine 03/10/2024 8:15 AM CDT Class 3 severe obesity due to excess calories with body mass index (BMI) of 45.0 to 49.9 in adult, unspecified whether serious comorbidity present (HC) VITAMIN B12 Routine 03/10/2024 8:15 AM CDT Class 3 severe obesity due to excess calories with body mass index (BMI) of 45.0 to 49.9 in adult, unspecified whether serious comorbidity present (HC) TSH WITH REFLEX Routine 03/10/2024 8:15 AM CDT Class 3 severe obesity due to excess calories with body mass index (BMI) of 45.0 to 49.9 in adult, unspecified whether serious comorbidity present (HC) LIPID PANEL Routine 03/10/2024 8:15 AM CDT Class 3 severe obesity due to excess calories with body mass index (BMI) of 45.0 to 49.9 in adult, unspecified whether serious comorbidity present (HC) INSULIN Routine 03/10/2024 8:15 AM CDT Class 3 severe obesity due to excess calories with body mass index (BMI) of 45.0 to 49.9 in adult, unspecified whether serious comorbidity present (HC) HEMOGLOBIN A1C SCREENING Routine 03/10/2024 8:15 AM CDT Class 3 severe obesity due to excess calories with body mass index (BMI) of 45.0 to 49.9 in adult, unspecified whether serious comorbidity present (HC) HEMOGLOBIN Routine 03/10/2024 8:15 AM CDT Class 3 severe obesity due to excess calories with body mass index (BMI) of 45.0 to 49.9 in adult, unspecified whether serious comorbidity present (HC) COMP METABOLIC PANEL Routine 03/10/2024 8:15 AM CDT Class 3 severe obesity due to excess calories with body mass index (BMI) of 45.0 to 49.9 in adult, unspecified whether serious comorbidity present (HC) LAB TRACKING EVENT Routine 02/18/2024 9: 05 AM CDT PATH TISSUE EXAM Routine 02/18/2024 9:05 AM CDT SCAN-OPERATIVE/PROCE DURE REPORT 02/18/2024 12:00 AM CDT ANTI HIV 1/2 Routine 08/10/2023 1:48 PM CDT Encounter for supervision of other normal in first trimester ANTI HCV Routine 08/10/2023 1:48 PM CDT Encounter for supervision of other normal in first trimester TALENT RECRUITER THIN PREP PAP SCREEN IMAGED Routine 09/07/2020 11:30 AM CUFF TURNER Screening for cervical cancer SURGICAL PROCEDURE (TYPE PROCEDURE DESCRIPTION BELOW) Elective Epidermal inclusion cyst Epidermal cyst of face from Last 3 Months or Most Recently Relevant to Health Maintenance Results * HEMOGLOBIN A1C SCREENING (03/10/2024 8:15 AM CDT) HEMOGLOBIN A1C SCREENING 5.1 <=6.4 % 03/10/2024 9:18 AM CDT [facility] Blood BLOOD SPECIMEN / Unknown Venipuncture / Unknown 03/10/2024 8:15 AM CDT 03/10/2024 8:15 AM CDT [facility] - 03/10/2024 9:18 AM CDT ? (<5.7%) ?Normal ? (5.7% to 6.4%) ? Indicates prediabetes ? (>=6.5%) ? Confirms diabetes Falsely low levels may be seen with: Recent Transfusion, Recent Significant Blood Loss, Hemolytic Diseases, or Falsely elevated levels may be seen with: Untreated Anemias, Splenectomy Dulce BARKSDALE CHEMISTRY Performing Organization Address [facility] Co de Phone Number [facility] [address] [place] [address] * TSH WITH REFLEX (03/10/2024 8:15 AM CDT) TSH 1.03 0.27 - 4.20 uIU/mL 03/10/2024 12:13 PM CDT [facility] Blood BLOOD SPECIMEN / Unknown Venipuncture / Unknown 03/10/2024 8:15 AM CDT 03/10/2024 8:15 AM CDT [facility] - 03/10/2024 12:13 PM CDT In Adults, TSH values between 5.00 and 10.00 uIU/ml do not necessarily indicate the presence of Hypothyroidism. Correlation with clinical findings such as presence of goiter and/or Thyroperoxidase (TPO) Antibody may be helpful. For more information please refer to DAVE 2004; 291: 228-238. Dulce BARKSDALE CHEMISTRY Performing Organization Address [facility] Co de Phone Number [facility] LABORATORY [address] [place] [address] * VITAMIN D 25 (DEFICIENCY) (03/10/2024 8:15 AM CDT) VITAMIN D TOTAL 20.8 20.0 - 80.0 ng/mL 03/10/2024 4:18 PM CDT [facility] Blood BLOOD SPECIMEN / Unknown Venipuncture / Unknown 03/10/2024 8:15 AM CDT 03/10/2024 8:15 AM CDT [facility] LABORATORY - 03/10/2024 4:18 PM CDT ? Vitamin D Status Deficiency: ? <20 ng/mL Insufficiency: ?20-29 ng/mL Sufficiency: ?30-80 ng/mL Possible Toxicity: ??>80 ng/mL Based on Sloan of Medicine recommendations Biotin supplements may cause clinically significant interference for this test assay. ??If interference is suspected, it is strongly recommended that biotin is discontinued for at least one week prior to retesting. Dulce BARKSDALE SEND OUTS Performing Organization Address City/[facility]/ZIP Co de Phone Number [facility] [address] [place] [phone], * HEMOGLOBIN (03/10/2024 8:15 AM CDT) HEMOGLOBIN 14.5 12.0 - 16.0 g/dL 03/10/2024 9:22 AM CDT [facility] MCV 86 80 - 100 fL 03/10/2024 9:22 AM CDT [facility] Blood BLOOD SPECIMEN / Unknown Venipuncture / Unknown 03/10/2024 8:15 AM CDT 03/10/2024 8:15 AM CDT Narrative [facility] - 03/10/2024 9:22 AM CDT This [place] [facility] [facility] Dulce BARKSDALE HEMATOLOG Y [facility] [address] [place] [address] * INSULIN (03/10/2024 8:15 AM CDT) INSULIN,SERUM 10.1 2.6 - 24.9 uIU/mL 03/10/2024 6:10 PM CDT [facility] Blood BLOOD SPECIMEN / Unknown Venipuncture / Unknown 03/10/2024 8:15 AM CDT 03/10/2024 8:15 AM CDT [facility] LABORATORY - 03/10/2024 6:10 PM CDT Biotin supplements may cause clinically significant interference for this test assay. ??If interference is suspected, it is strongly recommended that biotin is discontinued for at least one week prior to retesting. Dulce BARKSDALE SEND OUTS Performing Organization Address City/[facility]/ZIP Co de Phone Number [facility] [address] [place] [id number], [place] * VITAMIN B12 (03/10/2024 8:15 AM CDT) [facility] VITAMIN B12 764 232 - 1,245 pg/mL 03/10/2024 4:18 PM CDT [facility] Blood BLOOD SPECIMEN / Unknown Venipuncture / Unknown 03/10/2024 8:15 AM CDT 03/10/2024 8:15 AM CDT [facility] LABORATORY - 03/10/2024 4:18 PM CDT Biotin supplements may cause clinically significant interference for this test assay. ??If interference is suspected, it is strongly recommended that biotin is discontinued for at least one week prior to retesting. Dulce BARKSDALE CHEMISTRY [facility] [address] [place] [address], [place] * (ABNORMAL) LIPID PANEL (03/10/2024 8:15 AM CDT) [facility] CHOLESTEROL,TOTAL 141 100 - 199 mg/dL 03/10/2024 12:13 PM CDT [facility] Comment: Cholesterol, Total Reference Ranges Desirable <200 mg/dL Borderline 200-239 mg/dL High >=240 mg/dL TRIGLYCERIDES 89 <150 mg/dL 03/10/2024 12:13 PM [facility] HDL CHOLESTEROL 34(L) >40 mg/dL 12:13 PM [facility] NON-HDL CHOLESTEROL 107 <145 mg/dl 03/10/2024 12:13 PM [facility] CHOL/HDL RATIO 4.15 <4.50 03/10/2024 12:13 PM [facility] LDL CHOLESTEROL 89 <=130 mg/dL 03/10/2024 12:13 PM [facility] VLDL CHOLESTEROL 18 <=30 mg/dL 03/10/2024 12:13 PM [facility] PROVIDER ORDERED STATUS RANDOM 03/10/2024 12:13 PM [facility] Blood BLOOD SPECIMEN / Unknown Venipuncture / Unknown 03/10/2024 8:15 AM CDT 03/10/2024 8:15 AM T Dulce BARKSDALE CHEMISTRY [facility] [address] [place] [address] * COMP METABOLIC PANEL (03/10/2024 8:15 AM T) SODIUM 141 136 - 145 mmol/L 03/10/2024 12:13 PM [facility] POTASSIUM 4.0 3.5 - 5.1 mmol/L 03/10/2024 12:13 PM [facility] CHLORIDE 105 98 - 107 mmol/L 03/10/2024 12:13 PM [facility] CO2,TOTAL 25 22 - 29 mmol/L 03/10/2024 12:13 PM [facility] ANION GAP 11 5 - 18 03/10/2024 12:13 PM [facility] GLUCOSE 81 70 - 99 mg/dL 03/10/2024 12:13 PM [facility] CALCIUM 9.4 8.6 - 10.0 mg/dL 03/10/2024 12:13 PM [facility] BUN 11 6 - 20 mg/dL 03/10/2024 12:13 PM [facility] CREATININE 0.70 0.50 - 0.90 mg/dL 03/10/2024 12:13 PM [facility] BUN/CREAT RATIO 16 10 - 20 12:13 PM [facility] eGFR >90 >90 mL/min/1.7 3m2 03/10/2024 12:13 PM [facility] Comment:As of 2022, eG FR is calculated by the CKD-EPI creatinine equation without race adjustment. ??eGFR can be influenced by muscle mass, exercise, and diet. ??The reported eGFR is an estimation only and is only applicable if the renal function is stable. ALBUMIN 4.1 4.0 - 4.9 g/dL 03/10/2024 12:13 PM [facility] PROTEIN,TOTAL 6.9 6.0 - 8.0 g/dL 03/10/2024 12:13 PM [facility] BILIRUBIN,TOTAL 0.3 0.0 - 1.2 mg/dL 03/10/2024 12:13 PM [facility] ALK PHOSPHATASE 52 35 - 104 IU/L 03/10/2024 12:13 PM [facility] ALT (SGPT) 19 10 - 35 IU/L 03/10/2024 12:13 PM [facility] AST (SGOT) 31 10 - 35 IU/L 03/10/2024 12:13 PM [facility] Blood BLOOD SPECIMEN / Unknown Venipuncture / Unknown 03/10/2024 8:15 AM CDT 03/10/2024 8:15 AM CDT Dulce BARKSDALE CHEMISTRY [facility] [address] [place] [address] * LAB TRACKING EVENT (02/18/2024 9:05 AM CDT) Other (Other) Client Collect / Unknown 02/18/2024 9:05 AM CDT 02/18/2024 7:46 PM CDT Brenden Prater MD LAB BILL ONLY [facility] [address] [place] [address], * PATH TISSUE EXAM (02/18/2024 9:05 AM CDT) Case Report Pathology Report ?Case: [id number] ? Authorizing Provider: ??Brenden Prater MD ? Collected: ? 02/18/2024 0905 ? Ordering Location: ? L CENTRAL LAB ?Received: ?02/18/20242025 ? Pathologist: ? Lashae Kramer MD ? Specimen: ?Right Ear ? 02/22/2024 4:12 PM CDT [facility] LABORAT[facility] Final Diagnosis SKIN AND SOFT TISSUE, RIGHT EAR, PREAURICULAR, RESECTION: Benign epidermal inclusion cyst 02/22/2024 4:12 PM CDT [facility] Clinical Information Right preauricular ear cyst 02/22/2024 4:12 PM CDT [facility] Gross Description A) Received in formalin, labeled with the patient's name and right preauriclar ear cyst, is a 3.0 x 1.7 x 1.7 cm intact cyst. The cyst contents are berry and friable with attached 1.2 x 0.5 cm skin ellipse. The specimen is inked green. [employer]stream Marketing Manager sections are submitted in one cassette. TRS 02/19/2024 02/22/2024 4:12 PM CDT [facility] Microscopic Description The final diagnosis is based on microscopic examination of appropriate sections of all specimens. 02/22/2024 4:12 PM CDT [facility] Additional Information Interpreted at [facility] Laboratory - [address] [place] [address] 02/22/2024 4:12 PM CDT [facility] Other (Right Ear) 02/18/2024 9:05 AM CDT 02/18/2024 8:26 PM CDT Brenden Prater MD PATHOLOGY/CYTOLOGY [facility] [address] [place] [address], * SCAN-OPERATIVE/PROCEDURE REPORT (02/18/2024 12:00 AM CDT) Scanner OTHER * ANTI HCV (08/10/2023 1:48 PM CDT) HEPATITIS C ANTIBODY Non-Reacti ve Non-React monica 08/10/2023 9:46 PM CDT [facility] Comment:Please note, per www .CDC.gov: If a patient is known to be at high risk of HCV infection, or is symptomatic, and the physician's suspicion of HCV infection is high, HCV RNA testing is often employed and is of diagnostic value, even after an initial negative anti-HCV test result. Blood BLOOD SPECIMEN / Unknown Venipuncture / Unknown 08/10/2023 1:48 PM CDT 08/10/2023 1:50 PM CDT Katerine Watson DO SEND OUTS Performing Organization Address City/[facility]/ZIP Co de Phone Number [facility] [address] [place] [phone], * ANTI HIV 1/2 (08/10/2023 1:48 PM CDT) Pathologist [facility] HIV-1/HIV-2 SCREEN Non-Reacti ve Non-Reacti ve 08/10/2023 9:50 PM CDT [facility] Comment:HIV-1 p24 and HIV-1/ HIV-2 Ab Not Detected. Blood BLOOD SPECIMEN / Unknown Venipuncture / Unknown 08/10/2023 1:48 PM CDT 08/10/2023 1:50 PM CDT Katerine Watson DO SEND OUTS Performing Organization Address City/[facility] Co de Phone Number [facility] [address] [place] [address], * TALENT RECRUITER THIN PREP PAP SCREEN IMAGED [[id number]] (09/07/2020 11:30 AM CUFF TURNER) Pathologist [facility] Case Report Gynecologic Cytology Report ? Case: [id number] ? Authorizing Provider: ??Verona Aviles, ??Collected: ? 09/07/2020 1130 ? MD ? [facility] ?? Received: ?09/07/2020 1428 ? Clinic ? First Screen: ?Baccam, Minie ? Pathologist: ? Ariadna De Jesus MD ? Specimen: ?TALENT RECRUITER ThinPrep Vial Screening, Cervical ? 09/19/2020 12:54 PM CUFF TURNER [facility] ENTRAL LABORATORY INTERPRETATION/ RESULT NEGATIVE FOR INTRAEPITHELIAL LESION OR MALIGNANCY (NIL) (none) 09/19/2020 12:54 PM CUFF TURNER [facility] LABORAT[facility] R NON-NEOPLASTIC FINDING(S) Parakeratosis 09/19/2020 12:54 PM [facility] TURNER [facility] SPECIMEN ADEQUACY Satisfactory for evaluation Endocervical component present 09/19/2020 12:54 PM CU[facility] TURNER [facility] LAB[facility] HPV REQUEST HPV if ASCUS 09/19/2020 12:54 PM [facility] Date of LMP 08/27/2020 09/19/2020 12:54 PM CU[facility] TURNER [facility] Last Pap Date NA 09/19/2020 12:54 PM [facility] Last Pap Result First Pap/Unknown 12:54 PM [facility] TURNER [facility] Abnormal Pap or Gary Bx in last 5 years No 09/19/2020 12:54 PM [facility] Menstrual Status Regular Periods 09/19/2020 12:54 PM [facility] Gary Bx Done Today No 09/19/2020 12:54 PM [facility] Additional Information None given 09/19/2020 12:54 PM [facility] Comment: Cytology is screened at [facility] Laboratory - [address], [place] [address] and [facility] Laboratory - [address] [place] [address] and [facility] Laboratory - [address] [place] [address] Interpreted at [facility] Central Laboratory - [address], [place] [address] Automated Review Successful 09/19/2020 12:54 PM [facility] Comment:Specimen processed s uccessfully by automated gre tutor device, ThinPrep Imaging System, [employer] Note The pap test is a screening technique, not a diagnostic procedure. It is used primarily to screen for squamous cancers and precursor lesions. Published studies have shown that it is subject to both false negative and false positive results. The pap test should not be used as the sole means to diagnose or exclude pre-malignant and malignant lesions. 09/19/2020 12:54 PM CU[facility] TURNER [facility] Other (Cervical) Non-Blood / Unknown 09/07/2020 11:30 AM CUFF TURNER 09/07/2020 2:28 PM CUFF TURNER Verona Aviles MD PATHOLOGY/CYT OLOGY [facility]-CENTRAL LABORATORY [address] [place] [address], [place] from Last 3 Months or Most Recently Relevant to Health Maintenance Care Teams Microstrategy Reports Developer Relationship Specialty Start Date End Date Verona Aviles MD [address] [place] [address] PCP - General Family Practice 02/20/21 Dulce Eastman PA [address] [place] [address] Physician Md Pediatric Allergist 02/22/[address] [place] [address] Firer Low Pressure 03/04/24
[2024-05-01 15:27] LABS: SARS Antigen* Negative (Negative)
[2024-05-01 15:28] VITALS: RESP 16; TEMP 37.2; O2SAT 95
[2024-05-01 15:45] LABS: Basophils Absolute Auto 0.06 K/uL (0.00-0.30); Basophils Percent Auto 0.6 % (0.0-3.0); Eosinophils Absolute Auto 0.01 K/uL (0.00-0.50); Eosinophils Percent Auto 0.1 % (0.0-7.0); Hematocrit 42.4 % (33.0-51.0); Hemoglobin* 14.2 gm/dL (12.0-16.0); Immature Granulocytes Abs Auto 0.02 K/uL (0.00-0.30); Immature Granulocytes Pct Auto 0.2 %; Lymphocytes Percent Auto 7.5 % (20-44); Mean Corpuscular HGB Conc 34 gm/dL (32-36); Mean Corpuscular Hemoglobin 28 pg (26-34); Mean Corpuscular Volume 84 fL (80-100); Monocytes Percent Auto 5.7 % (0.0-11.0); Neutrophils Percent Auto 85.9 % (42.0-72.0); Platelet Count* 274 K/uL (140-440); RDW Coefficient of Variation % 12.8 % (11.5-15.5); Red Blood Count 5.07 m/uL (4.00-5.20); White Blood Count* 9.97 K/uL (4.50-11.00)
[2024-05-01 15:47] LABS: Mono Screen* Negative (Negative)
[2024-05-01 16:00] LABS: Slide Review Reflex No
[2024-05-01 16:10] LABS: Strep A DNA Probe* DETECTED (Not Detectd)
== END 2024-05-01 16:18 | disposition home or self-care (01) ==
PROVIDERS: Emergency Provider Family Medicine; PCP Family Medicine
DX: R50.9 Fever, unspecified (principal)
CPT/HCPCS: 36415; 85025; 86308; 87426; 87651; 99282; 99283

== ENCOUNTER 2025-03-24 05:39 | Inpatient (IN) | payer BC, SELFPAY ==
[2025-03-24] VITALS (18 sets, daily range): BP systolic 113–138; BP diastolic 70–91; PULSE 64–92; RESP 16–20; TEMP 36.3–36.8; O2SAT 96–99; BMI 53.2
[2025-03-24] MEDS: LACTATED RINGERS 1000 ML 1,000 ML 925 ML IV (06:28)
[2025-03-24 06:41] LABS: Basophils Absolute Auto 0.06 K/uL (0.00-0.30); Basophils Percent Auto 0.6 % (0.0-3.0); Eosinophils Absolute Auto 0.04 K/uL (0.00-0.50); Eosinophils Percent Auto 0.4 % (0.0-7.0); Hematocrit 33.8 % (33.0-51.0); Immature Granulocytes Abs Auto 0.03 K/uL (0.00-0.30); Immature Granulocytes Pct Auto 0.3 %; Lymphocytes Percent Auto 17.8 % (20-44); Mean Corpuscular HGB Conc 33 gm/dL (32-36); Mean Corpuscular Hemoglobin 27 pg (26-34); Mean Corpuscular Volume 82 fL (80-100); Monocytes Percent Auto 7.8 % (0.0-11.0); Neutrophils Percent Auto 73.1 % (42.0-72.0); Platelet Count* 222 K/uL (140-440); RDW Coefficient of Variation % 13.4 % (11.5-15.5); Red Blood Count 4.12 m/uL (4.00-5.20)
--- NOTE | 2025-03-24 06:41 | W.PM.LDBA ---
Subjective History of Present Illness Narrative: Patient is being admitted to Labor and Delivery for scheduled repeat delivery. She is a 24 year old at 38.1 weeks gestation. Her full history and physical was dictated by myself on 03/09/25. Please see this for details. Her history is pertinent for CHTN on no medication. She had 1 mild ranging BP 138/91 this morning. Will continue to monitor. OB - Problem Based A/P Additional Plan (1) BMI 50.0-59.9, adult: Status: Acute (2) Asthma: Status: Acute (3) Chronic hypertension: Status: Acute Plan: - currently on no medication - 1 mild ranging BP this morning - Denies any persistent headache, vision changes, SOB, right upper quadrant/epigastric pain, or rapidly expanding edema. - will continue to monitor (4) Previous delivery affecting : Status: Acute (5) : Status: Acute Plan - We reviewed intended surgery: repeat delivery. - We discussed R/B/A and anticipated postoperative course again. Will need Lovenox while hospitalized. All questions answered - Hgb 11.0 gm/dL - T&S pending OB Exam Physical Exam Vital signs: Temp Pulse BP Pulse Ox 98.1 F 92 138/91 H 96 03/24/25 06:08 03/24/25 06:08 03/24/25 06:08 03/24/25 06:08 Narrative: Physical exam: General: No acute distress Psych: Alert and oriented x3, full affect HEENT: Normocephalic, atraumatic Lungs: Unlabored breathing Neuro: No focal deficit. Mentating appropriately Pelvic exam: Deferred
[2025-03-24 06:44] LABS: Slide Review Reflex No
[2025-03-24] MEDS: CEFAZOLIN 3 GM in 0.9 % SODIUM CHLORIDE Mini-bag 100 ML IVPB (07:44)
[2025-03-24] MEDS: LACTATED RINGERS 1000 ML 1,000 ML 125 ML IV (07:57)
[2025-03-24] MEDS: KETOROLAC 30 MG/ML inj IVP ×3 (08:32→20:32)
--- NOTE | 2025-03-24 08:33 | P.NB_ITS ---
Nerve Block Nerve Block Time Seen by Provider: 08:50 Date Seen: 03/24/25 Type of block requested by surgeon for post-operative analgesia: TAP Side: bilateral Time out performed: Yes Verification of patient name: Yes Verification of date of : Yes Site marking: site marked Name of person performing procedure: Luis Smiley Continuous monitoring Was continuous monitoring of O2 sat, B/P, photographers' model, recorded every 15 minutes?: Yes Procedure Checklist: sterile prep, needles and gloves Ultrasound guided. Images saved: Yes Medications given in 5ml increments after negative aspiration: Marcaine %: 0.25 mL: 30 Needle gauge: 20 and Exparel mL: 10 Needle gauge: 20 Patient tolerated procedure well: Yes Additional comments: Injected in 5 mL increments after negative aspiration Block Charges Block Charge (with Pro Fee): TAP Bilateral Use of Ultrasound Machine for Block: Yes- US Guidance/pain block
--- NOTE | 2025-03-24 08:39 | P.OBPRC_ITS ---
Procedure Will [facility] bill your pro fee for this procedure?: Yes [place] total score - 1 minute: 8 total score - 5 minute: 9
--- NOTE | 2025-03-24 08:50 | P.ANES_ITS ---
Anesthesia Charges Start Date/Time Anesthesia Start Date: 03/24/25 Anesthesia Start Time: 07:19 Stop Date/Time Anesthesia Stop Date: 03/24/25 Anesthesia Stop Time: 09:00 Coding CPT Codes CPT Codes: ANESTH CS DELIVERY - 25232 ([id number]) P3 - PATIENT W/SEVERE SYS DISEASE, QK - INTERPRETATIVE DANCER 2-4 CNCRNT ANES PROC, QX - MICROSOFT BI CONSULTANT SVC W/ MD MED DIRECTION
--- NOTE | 2025-03-24 08:50 | W.ANESCHARGE ---
Anesthesia Charges Start Date/Time Anesthesia Start Date: 03/24/25 Anesthesia Start Time: 07:19 Stop Date/Time Anesthesia Stop Date: 03/24/25 Anesthesia Stop Time: 09:00 Coding CPT Codes CPT Codes: ANESTH CS DELIVERY - 43845 ([id number]) P3 - PATIENT W/SEVERE SYS DISEASE, QK - GAS COLLECTION SYSTEM OPERATOR 2-4 CNCRNT ANES PROC, QX - PHONE MANAGER SVC W/ MD MED DIRECTION
--- NOTE | 2025-03-24 09:24 | P.ANES_ITS ---
Anesthesia Charges Start Date/Time Anesthesia Start Date: 03/24/25 Anesthesia Start Time: 07:19 Stop Date/Time Anesthesia Stop Date: 03/24/25 Anesthesia Stop Time: 09:00 Coding CPT Codes CPT Codes: ANESTH CS DELIVERY - 51987 ([id number]) QK - BONBON DIPPER 2-4 CNCRNT ANES PROC, QX - FIRER LOW PRESSURE SVC W/ MD MED DIRECTION, P3 - PATIENT W/SEVERE SYS DISEASE
--- NOTE | 2025-03-24 09:24 | W.ANESCHARGE ---
Anesthesia Charges Start Date/Time Anesthesia Start Date: 03/24/25 Anesthesia Start Time: 07:19 Stop Date/Time Anesthesia Stop Date: 03/24/25 Anesthesia Stop Time: 09:00 Coding CPT Codes CPT Codes: ANESTH CS DELIVERY - 56875 ([id number]) QK - ENGAGEMENT ENGINEER 2-4 CNCRNT ANES PROC, QX - CHILD THERAPIST SVC W/ MD MED DIRECTION, P3 - PATIENT W/SEVERE SYS DISEASE
[2025-03-24] MEDS: ACETAMINOPHEN 500 MG TABLET 1000 MG PO ×2 (10:55→18:59)
--- NOTE | 2025-03-24 10:57 | PM.OBPRCCS ---
Procedure Time Seen by Provider: 07:15 Date of procedure: 03/24/25 Procedure Done: Global Will [facility] bill your pro fee for this procedure?: Yes Blood Loss Measurement Type: QBL Bakri Used: No IV fluids (mL): 1,600 Urine Output (mL): 350 Urine Output Comment: Clear Procedure Description: DELIVERY BY SECTION Date of Service: 03/24/25 Delivery time: 0755 Summary: Admitted for repeat delivery at 38.1w for chronic hypertension, Repeat Lower uterine transverse section, Pfannenstiel, Closed with sutures, QBL 535 cc, No complications, Findings: Filmy intraabdominal adhesions. Normal uterus, bilateral ovaries and tubes 8/9 Weight 4080 g. Primary Indication(s): 1. History of delivery x 1 2. Declined TOLAC 3. Chronic hypertension on no meds Postoperative diagnosis 1. Same Procedures: Repeat lower uterine transverse section Specimens Removed: Placenta Surgeon: Yady Eisenberg MD Systems Support Specialist Surgeon: Daphne Garber MD Anesthesia: Spinal Report: Prophylactic antibiotic, 3 g of Ancef was given before patient was taken to OR. After arrival to the operating room patient was placed in the supine position with left lateral tilt after administration of spinal anesthesia. Laparotomy A pfannenstiel incision was made through the anterior abdominal wall with #10 scalpel approximately 2 cm above the pubic symphysis. The incision was extended sharply with the #10 scalpel through the subcutaneous tissue to the level of fascia. The fascia was entered sharply with a #10 scalpel (Pfannenstiel) in the midline and extended in semi-elliptical fashion with Rivera scissor. The underlying muscles were dissected off the overlying fascia by grasping the superior aspect of fascia with two jacob clamps and blunt dissection was used along the midline. The fascia was further from rectus muscle with Rivera scissor and/or cautery. In similar fashion, the lower aspect of fascia was also grasped with two Jacob clamps and both blunt and sharp dissection was used to separate fascia from rectus muscle. The rectus muscles were in the midline bluntly with digits. The peritoneum was then entered bluntly. The peritoneal incision was then extended superiorly and inferiorly under direct visualization with care being taken to avoid bladder and bowel. Minimal filmy adhesions noted. The peritoneal incision was enlarged bluntly by lateral traction from the surgeon's and printer floor covering assistant's hand as well as electrocautery. Gab retractor was inserted into the abdomen. Delivery A bladder flap was developed by grasping with Cymro forcep and enter with Metzenbaun scissor. Then sharp and blunt dissection with Metzenbaum scissor and fingers were performed. A low transverse hysterotomy was made then with #10 scalpel and extended laterally and cephalad with fingers in a low transverse fashion with Manu Jorgensen technique with care being taken to avoid injury to the fetus. The amniotic cavity (membrane) was then entered with spontaneous rupture of membrane, and the amniotic fluid was noted to be copious and clear, fetus was delivered cephalic. With delivery of the baby, no extension was noted. Placenta was delivered spontaneously with steady traction on cord and manual separation of placenta from uterine wall. Closure Uterine cavity was cleaned after placental delivery with lap sponge x 2. The hysterotomy was closed in two layers with stitches using 0 vicryl with continuous locking stitches and 0 monocryl in a continuous non locking manner. One figure of 8 placed at left uterine angle 1 cm below hysterotomy. Hemostasis was achieved as needed with electrocautery. The ovaries/tubes/uterine surface were evaluated. They were found to be normal. Gab retractor removed and hemostasis was confirmed again. Fascia was closed with running stitches using 0 PDS. Subcutaneous layer was irrigated. Hemostasis was checked for and found to be adequate. The subcutaneous layer was closed with running 2-0 chromic sutures. The skin was closed with 4-0 monocryl subcuticular sutures . The incision was cleaned and covered with a steri-strip and silver dressing. The procedure considered terminate at this time. Intraoperative Complications: None QBL: 535 cc Uterotonics/hemostatic agents: 40u of pitocin Disposition: The patient tolerated the procedure well. She was recovered in Obstetric PACU for close monitoring in stable condition, with a contracted uterus and normal transvaginal bleeding. The was sent to mother?s bedside/PACU. The placenta was sent to pathology. Debrief with OR team performed and specimen reviewed at the conclusion of the procedure. Infant total score - 1 minute: 8 total score - 5 minute: 9
[2025-03-24] MEDS: DOCUSATE SODIUM 100 MG CAPSULE PO (18:59)
[2025-03-24] MEDS: ENOXAPARIN 40 MG/0.4 ML INJ SUBCUT (20:32)
[2025-03-25 01:35] VITALS: BP 137/82; PULSE 72; RESP 16; TEMP 36.6; O2SAT 97
[2025-03-25] MEDS: KETOROLAC 30 MG/ML inj IVP ×3 (02:40→14:35)
[2025-03-25 05:06] VITALS: BP 119/79; PULSE 81; RESP 16; TEMP 36.7; O2SAT 98
[2025-03-25] MEDS: ACETAMINOPHEN 500 MG TABLET 1000 MG PO (05:11)
[2025-03-25 06:51] LABS: Hemoglobin* 9.7 gm/dL (12.0-16.0)
[2025-03-25] MEDS: DOCUSATE SODIUM 100 MG CAPSULE PO (08:35)
[2025-03-25] MEDS: ENOXAPARIN 40 MG/0.4 ML INJ SUBCUT (08:35)
[2025-03-25 08:42] VITALS: BP 137/78; PULSE 69; RESP 16; TEMP 36.5; O2SAT 99
--- NOTE | 2025-03-25 10:27 | PM.OBDSVD1 ---
DS: Providers Provider Time Seen by Provider: 09:00 Date Seen: 03/25/25 Date of admission: 03/24/25 05:39 Primary care physician: Katerine Watson DO Admitting Clinician: Yady Eisenberg MD Attending Physician on discharge: Yady Eisenberg MD Date of Discharge: 03/25/25 DS: Diagnosis Discharge Diagnosis (1) BMI 50.0-59.9, adult: Status: Acute (2) Asthma: Status: Acute (3) Chronic hypertension: Status: Acute (4) Status post delivery: Status: Acute (5) Acute blood loss anemia: Status: Acute Problem details: - QBL 535 cc - Hgb 11 --> 9.7 gm/dL - VSS - Asymptomatic - Plan for PO iron QMWF Exam Const: Vital Signs, click to edit/add: Vital Signs - 24 hr 03/24/25 10:30 03/24/25 10:45 03/24/25 11:00 Temperature Pulse Rate [Pulse Oximeter] 70 78 70 Respiratory Rate 18 18 18 Blood Pressure [Le ft Arm] 131/80 127/84 128/70 Pulse Oximetry 99 99 99 Oxygen Delivery Me thod 03/24/25 11:15 03/24/25 11:30 03/24/25 15:45 Temperature 98.0 F 97.9 F Pulse Rate [Pulse Oximeter] 79 66 76 Respiratory Rate 18 18 18 Blood Pressure [Le ft Arm] 132/81 130/79 134/85 Pulse Oximetry 98 97 96 Oxygen Delivery Me thod Room Air 03/24/25 20:40 03/25/25 01:35 03/25/25 05:06 Temperature 98.3 F 97.8 F 98.1 F Pulse Rate [Pulse Oximeter] 72 72 81 Respiratory Rate 16 16 16 Blood Pressure [Le ft Arm] 123/77 137/82 119/79 Pulse Oximetry 97 97 98 Oxygen Delivery Me thod Room Air Room Air Room Air 03/25/25 08:42 Temperature 97.7 F Pulse Rate [Pulse Oximeter] 69 Respiratory Rate 16 Blood Pressure [Le ft Arm] 137/78 Pulse Oximetry 99 Oxygen Delivery Me thod Room Air OB - DS: Summary Hospital Course Hospital Course: The patient is a 24 year old at 38.1 weeks gestation that was admitted to the Center on 03/24/25 for scheduled repeat delivery. She had an uncomplicated delivery. She delivered a viable male . She is breast and bottle feeding. the patient has done well. She endorses a significantly more positive experience than last delivery. For this she is grateful. Overnight patient had real complaints. Her pain is well controlled on oral medications. She did not need any oxycodone overnight. She is tolerating a regular diet. She has passed flatus. She is ambulating without difficulty. Lochia is scant. She is urinating without henriquez. Patient denies chest pain, SOB, n/v, headache, RUQ pain, vision changes, dizziness. Plan for f/u in 1 week for blood pressure and incision check. No need for antihypertensive medication currently. Peripartum Data Procedures: Procedures Operation Date: 03/24/25 07:15 Actual Procedure Side Surgeon p Repeat Section Not Applicable Yady Eisenberg MD [place] Gender: Male Time Spent with Patient Time attestation: Total time spent providing and/or coordinating discharge services: Time spent: Less than 30 minutes Discharge Plan Discharge Disposition: Home, Self-Care Date of Admission: 03/24/25 05:39 Attending Provider on Discharge: Yady Eisenberg Primary Care Provider: Katerine Watson Condition: Stable Anticipated Discharge Date/Time: 03/25/25 10:07 Discharge Medications: New acetaminophen 500 mg Tablet 1,000 mg PO Q6H PRN (Reason: Pain) 30 Days Qty: 30 0RF docusate sodium 100 mg Capsule 100 mg PO DAILY PRN (Reason: const) 30 Days Qty: 30 0RF ibuprofen 600 mg Tablet 600 mg PO Q6H PRN (Reason: Pain) 30 Days Qty: 30 0RF Lanolin (HPA) 100 % Cream 1 applic topical Q1H PRNQty: 21 0RF oxycodone 5 mg Tablet 5 mg PO Q6H PRN (Reason: Pain) 14 Days Qty: 15 0RF ferric citrate [Auryxia] 210 mg iron tablet 210 mg PO QMWF 30 Days Qty: 13 2RF Rx Instructions: administer with a meal Continued Classic 28 mg iron- 800 mcg tablet PO QDAY Discontinued aspirin [Adult Aspirin Regimen] 81 mg tablet,delayed release (DR/EC) 81 mg PO QDAY Discharge Orders: Discharge Order (Routine); Ordered 03/25/25 Ordered By: Yady B Vu Patient Education: OB /Breast Feeding Follow Up Appointments: Katerine Watson DO [Primary Care Provider, Family Practice] Forms: [employer] Info Instructions
[2025-03-25 12:15] VITALS: BP 119/78; PULSE 85; RESP 16; O2SAT 98
[2025-03-26 00:28] LABS: Rapid Plasma Reagin (RPR) Non Reactive (Non Reactive)
== END 2025-03-25 15:00 | disposition home or self-care (01) | DRG 540 ==
PROVIDERS: Obstetrics & Gynecology; Admitting Provider Obstetrics & Gynecology; PCP Family Medicine; Visit Provider Obstetrics & Gynecology
PROC: 10D00Z1 Extraction of Products of Conception, Low, Open Approach (ICD-10-PCS; CPT 59514; principal; 2025-03-24 07:15)
DX: O34.211 Maternal care for low transverse scar from previous cesarean delivery (principal); O10.92 Unspecified pre-existing hypertension complicating childbirth; J45.909 Unspecified asthma, uncomplicated; G89.18 Other acute postprocedural pain; O90.81 Anemia of the puerperium; D62 Acute posthemorrhagic anemia; Z37.0 Single live birth
CPT/HCPCS: 01961; 36415; 64488; 76942; 85018; 85025; 86592; 86850; 86900; 86901; 88307; A4314; A9270; J0665; J0666; J0690; J1100; J1650; J1885; J2371; J2405; J2590; J7120

== ENCOUNTER 2025-04-04 12:56 | Outpatient (CLI) | payer BC, SELFPAY | END 2025-04-04 12:57 | disposition home or self-care (01) | PROVIDERS: PCP Family Medicine; Visit Provider Obstetrics & Gynecology | DX: I10 Essential (primary) hypertension (principal) | CPT/HCPCS: 82565; 84450; 84460 ==